=== PATIENT | male | born 2000 | race Caucasian/White ===

== ENCOUNTER 2019-02-23 15:13 | Emergency (ER) | payer BC ==
--- NOTE | 2019-02-23 16:53 | EDM.PDOC ---
ED HPI GENERAL MEDICAL PROBLEM - General Chief Complaint: Back Pain or Injury Stated Complaint: BACK PAIN Time Seen by Provider: 02/23/19 15:20 Source of Information: Reports: Patient, RN - History of Present Illness INITIAL COMMENTS - FREE TEXT/NARRATIVE: 18 yr male presents with right sided back pain. States he did have a mild case in the past few days and did drink some extra cranberry juice and pain did improve. 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 States he did try some OTC Ibuprofen and pain started around 12 noon and is getting worse. States pain is about 4-6 and sometimes a 10. States pain is worse with movement. ED ROS GENERAL - Review of Systems Review Of Systems: See Below Constitutional: Reports: Fever. Denies: Chills, Decreased Appetite HEENT: Reports: No Symptoms. Denies: Ear Pain, Throat Pain Respiratory: Reports: No Symptoms Cardiovascular: Reports: No Symptoms GI/Abdominal: Denies: Abdominal Pain, Decreased Appetite : Denies: Dysuria, Frequency Musculoskeletal: Reports: Back Pain Skin: Reports: No Symptoms Neurological: Reports: No Symptoms Psychiatric: Reports: No Symptoms ED EXAM, GENERAL - Physical Exam Exam: See Below Exam Limited By: No Limitations General Appearance: Alert, No Apparent Distress Eye Exam: Bilateral Eye: PERRL Ears: Hearing Grossly Normal Nose: No: Nasal Tenderness, Nasal Drainage Throat/Mouth: Normal Voice, No Airway Compromise Head: Atraumatic, Normocephalic Neck: Supple, Non-Tender Respiratory/Chest: No Respiratory Distress, Chest Non-Tender Cardiovascular: Regular Rate, Rhythm, No Edema Back Exam: Other (right sided, lower thoracic back pain) Extremities: Normal Inspection, Normal Range of Motion, Non-Tender, No Pedal Edema Neurological: Alert, Oriented, Normal Cognition, Normal Gait Psychiatric: Normal Affect, Normal Mood Skin Exam: Warm, Dry, Normal Color Lymphatic: No Adenopathy Course - Orders/Labs/Meds Labs: Laboratory Tests 02/23/19 02/23/19 02/23/19 Range/Units 15:40 15:40 15:40 WBC 7.5 (4.0-11.0) K/uL RBC 5.23 (4.50-6.50) M/uL Hgb 15.6 (13.0-18.0) g/dL Hct 44.1 (40.0-54.0) % MCV 84 (76-96) fL MCH 29.8 (27.0-32.0) pg MCHC 35.4 H (31.0-35.0) g/dL RDW 13.0 (11.0-16.0) % Plt Count 251 (150-400) K/uL MPV 9.5 (6.0-10.0) fL Neut % (Auto) 55.0 (45.0-70.0) % Lymph % (Auto) 34.9 (20.0-40.0) % [place] % (Auto) 6.4 (3.0-10.0) % Eos % (Auto) 3.2 (1.0-5.0) % Baso % (Auto) 0.5 (0.0-0.5) % Neut # (Auto) 4.12 (2.00-7.50) K/uL Lymph # (Auto) 2.62 (1.50-4.00) K/uL [place] # (Auto) 0.48 (0.20-0.80) K/uL Eos # (Auto) 0.24 (0.04-0.40) K/uL Baso # (Auto) 0.04 (0.02-0.10) K/uL Sodium 143 (136-145) mmol/L Potassium 3.8 (3.5-5.1) mmol/L Chloride 102 (98-107) mmol/L Carbon Dioxide 26.8 (21.0-32.0) mmol/L Anion Gap 18.0 H (5.0-15.0) mmol/L BUN 11 (8-26) mg/dL Creatinine 1.00 (0.70-1.30) mg/dL Est Cr Clr Drug Dosing TNP Estimated GFR (MDRD) > 60 (>60) MLS/MIN BUN/Creatinine Ratio 11.0 (6-25) Glucose 93 (74-100) mg/dL Calcium 9.2 (8.5-10.1) mg/dL Total Bilirubin 0.4 (0.0-1.0) mg/dL AST 47 H (15-37) U/L ALT 113 H (12-78) U/L Alkaline Phosphatase 87 (46-116) U/L Total Protein 8.5 H (6.4-8.2) g/dL Albumin 4.7 (3.4-5.0) g/dL Globulin 3.8 (2.2-4.2) g/dL Albumin/Globulin Ratio 1.2 (0.8-2.0) Urine Color Yellow Urine Appearance Clear (CLEAR) Urine pH 6.0 (5.0-8.0) Ur Specific [place] <= 1.005 (1.003-1.030) Urine Protein Negative (NEGATIVE) mg/dL Urine Glucose (UA) Negative (NEGATIVE) mg/dL Urine Ketones Negative (NEGATIVE) mg/dL Urine Occult Blood Negative (NEGATIVE) Urine Nitrite Negative (NEGATIVE) Urine Bilirubin Negative (NEGATIVE) Urine Urobilinogen 0.2 (0.2-1.0) E.U./dL Ur Leukocyte Esterase Negative (NEGATIVE) Urine RBC Not seen /HPF Urine WBC 0-5 H /HPF Ur Squamous Epith Cells Not seen /HPF Urine Bacteria Not seen /HPF - Re-Assessments/Exams Free Text/Narrative Re-Assessment/Exam: 02/23/19 16:54 Reviewed labs w pt. Urine is clear and no hematuria, no bacteria noted. CBC is nonsignificant. CMP with elevated lever enzymes. Pt states some alcohol intake. States he has been working 14 hour days, 7 days each week and will work until May. Departure - Departure Time of Disposition: 16:21 Disposition: Home, Self-Care 01 Condition: Good Clinical Impression: Acute back pain - Discharge Information Instructions: Back Pain, Adult Referrals: PCP,None [Primary Care Provider] - Forms: ED Department Discharge Additional Instructions: Take Advil for pain as needed. Increase oral fluids. return to clinic or ED if flank/back pain does not improve. Follow up with MD in 4-6 weeks for lab to follow up on elevated liver enzymes. Alternate cold and heat pack to affected area for 20 minutes every 4-6 hours. - Assessment/Plan Plan: Counseled on acute back pain: Recommend Advil 600-800 mg PO tid as needed, take with food and limit alcohol use. Liver enzymes are mildly elevated, F/U with PCP in 4-6 weeks or upon return to home. Recommend ice or heat to area for 30 minutes several times each day. May follow-up with chiropractor as needed. Pt reports some decrease in regular BM. Recommend use of Miralax daily for a few days for regular BM. Recommend increase in fluids and rest area. RTC or ER if symptoms persist or worsen.
== END 2019-02-23 16:21 | disposition home or self-care (01) ==
LOC: LB.ED 15:13
DX: M54.9 Dorsalgia, unspecified (principal)
CPT/HCPCS: 36415; 80053; 81001; 85025; 99283